=== PATIENT | female | born 1990 | race Caucasian/White ===

== ENCOUNTER 2020-01-19 10:48 | Emergency (ER) | payer OTHER ==
[~2020-01-19] VITALS: Ht 167.6 cm; Wt 65.8 kg
--- NOTE | 2020-01-19 10:57 | NUR ---
[id number], in custody, clearance for otb, took meth 2-3 hrs ago. on room air, breathing evenly and unlabored. connected to the monitor and pulse ox. kept comfortable, will continue to monitor accordingly.
--- NOTE | 2020-01-19 10:58 | NUR ---
Patient left in custody accompanied by [employer] in no distress.
[2020-01-19 10:59] VITALS: BP 136/93
== END 2020-01-19 11:00 ==
LOC: ER 10:56
DX: F15.90 Other stimulant use, unspecified, uncomplicated (principal); R45.1 Restlessness and agitation